=== PATIENT | female | born 1990 | race Caucasian/White ===

== ENCOUNTER → 2018-09-23 14:10 | Outpatient (CLI) | payer OTHER, MEDICAID, SELFPAY ==
[2018-09-23 15:10] LABS: Hemoglobin A1C% w Est Avg Glu 4.8 % (4.0-6.0)
[2018-09-23 15:27] LABS: Glucose 86 mg/dL (70-100)
== END ==
PROVIDERS: PCP Family Medicine; Visit Provider Family Medicine
DX: R53.83 Other fatigue (principal)
CPT/HCPCS: 36415; 82947; 83036

== ENCOUNTER → 2019-02-18 09:12 | Outpatient (CLI) | payer OTHER, MEDICAID, SELFPAY ==
--- NOTE | 2019-02-18 09:13 | DI.US.S_ITS ---
PROCEDURE: US PELVIC COMPLETE INDICATIONS: RIGHT PELVIC PAIN; POSSIBLE CYST TECHNIQUE: Real-time scanning was performed of the pelvic organs, with image documentation. Additional endovaginal scanning was necessary due to incomplete visualization of the adnexal and endometrial structures by transabdominal scanning. COMPARISON: [facility], , PELVIC COMPLETE, 03/30/2016, 6:43. [facility], , PELVIC COMPLETE, 02/09/2016, 8:21. FINDINGS: Transabdominal scanning: Limited scanning through the kidneys shows no hydronephrosis. No pathologic free abdominal or pelvic fluid. Endovaginal scanning: Uterus: Uterus is normal in size at 5.3 x 3.9 x 8.8 cm, anteverted. The endometrium measures 4.5 mm in combined thickness. Ovaries: The right ovary measures 2.7 x 1.4 x 2.2 cm and the left measures 1.8 x 3.2 x 2.6 cm. There is a presumed involuting cyst at the left ovary measuring only 1.6 x 1.0 x 1.8 cm. The IMPRESSION: Normal appearing uterus and endometrial lining. Normal-appearing right ovary. Involuting 1.0 x 1.6 x 1.8 cm left ovarian cyst incidentally noted. Dictated by: Hussein Ramirez M.D. on 02/18/2019 at 11:41 Approved by: Hussein Ramirez M.D. on 02/18/2019 at 11:43
== END ==
PROVIDERS: PCP Family Medicine; Visit Provider Family Medicine
DX: R10.2 Pelvic and perineal pain (principal); N83.292 Other ovarian cyst, left side
CPT/HCPCS: 76830; 76856

== ENCOUNTER → 2020-06-14 10:51 | Outpatient (CLI) | payer OTHER, MEDICAID, SELFPAY ==
[2020-06-14 11:51] LABS: Alanine Aminotransferase 26 IU/L (<35); Albumin 4.3 g/dL (3.5-5.0); Albumin Globulin Ratio 1.4 (1.0-2.8); Alkaline Phosphatase 61 U/L (38-126); Aspartate Aminotransferase 24 IU/L (14-36); BUN Creatinine Ratio 16.1 (6-22); Bilirubin Total 0.4 mg/dL (0.2-1.3); Bilirubin Unconjugated 0.3 mg/dL (0.0-1.1); Blood Urea Nitrogen 10 mg/dL (7-17); Calcium 9.1 mg/dL (8.4-10.2); Carbon Dioxide 25 mmol/L (22-32); Chloride 106 mmol/L (98-107); Cholesterol 145 mg/dL (140-199); Estimated Glomerular Filt Rate > 60.0 mL/min (>60); Globulin 3.1 g/dL (1.7-4.1); Glucose 104 mg/dL (70-100); HDL Cholesterol 46 mg/dL (40-60); HEMOLYSIS < 15 (0-50); LDL Cholesterol Calculated 84 mg/dL (<100); Phosphorous 3.1 mg/dL (2.5-4.5); Potassium 4.2 mmol/L (3.4-5.1); Sodium 135 mmol/L (137-145); Total Protein 7.4 g/dL (6.3-8.2); Triglycerides 75 mg/dL (35-150)
[2020-06-14 12:16] LABS: Free T3, Triiodothyronine Free 3.41 pg/mL (2.77-5.27); T4 Total Thyroxine 7.27 ug/dL (5.5-11.0)
[2020-06-14 12:29] LABS: Thyroid Stimulating Hormone 1.66 uIU/mL (0.47-4.68)
[2020-06-17 10:08] LABS: Lamotrigine Lamictal 1.9 ug/mL (2.0-20.0)
== END ==
PROVIDERS: PCP Family Medicine; Referring Provider Nurse Practitioner Family; Visit Provider Nurse Practitioner Family
DX: F31.81 Bipolar II disorder (principal); F41.1 Generalized anxiety disorder
CPT/HCPCS: 36415; 80053; 80061; 80069; 80076; 80175; 84436; 84443; 84481

== ENCOUNTER → 2021-06-04 10:03 | Outpatient (CLI) | payer OTHER, MEDICAID, SELFPAY ==
[2021-06-04 10:43] LABS: COVID19 -Nasal RAPID Negative (Negative)
== END ==
PROVIDERS: PCP Family Medicine; Visit Provider Physician Assistant
DX: J02.9 Acute pharyngitis, unspecified (principal); Z20.822 Contact with and (suspected) exposure to COVID-19
CPT/HCPCS: 87070; 87077; 87147; 87635; 87880

== ENCOUNTER → 2022-06-12 16:53 | Outpatient (CLI) | payer OTHER, MEDICAID, SELFPAY ==
[2022-06-12 17:12] LABS: Add Manual Diff / Slide Review NO; Basophils Absolute Auto 100 /uL (0-100); Basophils Percent Auto 0.7 % (0-2); Eosinophils Absolute Auto 100 /uL (0-450); Hematocrit 40.3 % (36-46); Hemoglobin 13.7 g/dL (12.0-16.0); Lymphocytes Absolute Auto 2900 /uL (1100-4500); Lymphocytes Percent Auto 19.8 % (25-40); Mean Corpuscular HGB Conc 34.1 % (30-36); Mean Corpuscular Hemoglobin 28.1 PG (26-34); Mean Corpuscular Volume 82.5 fL (80-100); Monocytes Absolute Auto 800 /uL (0-900); Monocytes Percent Auto 5.8 % (3-14); Neutrophils Absolute Auto 10600 /uL (1500-7000); Neutrophils Percent Auto 72.7 % (50-75); Platelet Count 310 X10^3/uL (150-400); Red Blood Cell Count 4.88 X10^6/uL (4.0-5.2); Red Cell Distribution Width 13.7 % (11.6-14.8); White Blood Cell Count 14.6 X10^3/uL (4.5-11.0)
[2022-06-12 17:39] LABS: Alanine Aminotransferase 34 IU/L (<35); Albumin 4.7 g/dL (3.5-5.0); Albumin Globulin Ratio 1.2 (1.0-2.8); Alkaline Phosphatase 97 U/L (38-126); Aspartate Aminotransferase 29 IU/L (14-36); BUN Creatinine Ratio 10.1 (6-22); Bilirubin Total 0.8 mg/dL (0.2-1.3); Blood Urea Nitrogen 8 mg/dL (7-17); Calcium 9.1 mg/dL (8.4-10.2); Carbon Dioxide 21 mmol/L (22-32); Chloride 102 mmol/L (98-107); Cholesterol 218 mg/dL (140-199); Estimated Glomerular Filt Rate > 60 mL/min (>60); Globulin 3.8 g/dL (1.7-4.1); Glucose 94 mg/dL (70-100); HDL Cholesterol 47 mg/dL (40-60); HEMOLYSIS < 15 (0-50); LDL Cholesterol Calculated 125 mg/dL (<100); Potassium 3.5 mmol/L (3.4-5.1); Sodium 138 mmol/L (137-145); Total Protein 8.5 g/dL (6.3-8.2); Triglycerides 229 mg/dL (35-150)
[2022-06-12 17:54] LABS: Free T4, Direct Thyroxine 1.52 ng/dL (0.78-2.19)
[2022-06-12 18:08] LABS: Thyroid Stimulating Hormone 1.87 uIU/mL (0.47-4.68)
== END ==
PROVIDERS: PCP Family Medicine; Referring Provider Physician Assistant; Visit Provider Physician Assistant
DX: Z79.899 Other long term (current) drug therapy (principal)
CPT/HCPCS: 36415; 80053; 80061; 84439; 84443; 84481; 85025

== ENCOUNTER → 2022-06-20 15:24 | Outpatient (CLI) | payer OTHER, MEDICAID, SELFPAY ==
[2022-06-20 16:12] LABS: Appearance Urine UA CLEAR; Bilirubin Urine UA NEGATIVE (NEGATIVE); Color Urine UA YELLOW; Glucose Urine UA NEGATIVE (Negative); Ketones Urine UA NEGATIVE (NEGATIVE); Leukocyte Esterase Urine UA NEGATIVE (NEGATIVE); Nitrite Urine UA NEGATIVE (Negative); Occult Blood Urine UA TRACE-LYSED (Negative); Protein Urine UA NEGATIVE (Negative); Urobilinogen Urine UA 0.2 E.U./dL (0.2)
[2022-06-20 16:16] LABS: Add Manual Diff / Slide Review NO; Basophils Absolute Auto 0 /uL (0-100); Basophils Percent Auto 0.3 % (0-2); Eosinophils Absolute Auto 200 /uL (0-450); Eosinophils Percent Auto 1.1 % (2-4); Hematocrit 38.7 % (36-46); Lymphocytes Absolute Auto 2900 /uL (1100-4500); Lymphocytes Percent Auto 20.1 % (25-40); Mean Corpuscular HGB Conc 33.5 % (30-36); Mean Corpuscular Hemoglobin 27.5 PG (26-34); Mean Corpuscular Volume 82.2 fL (80-100); Monocytes Absolute Auto 800 /uL (0-900); Monocytes Percent Auto 5.7 % (3-14); Neutrophils Absolute Auto 10600 /uL (1500-7000); Neutrophils Percent Auto 72.8 % (50-75); Platelet Count 374 X10^3/uL (150-400); Red Cell Distribution Width 13.4 % (11.6-14.8); White Blood Cell Count 14.6 X10^3/uL (4.5-11.0)
[2022-06-20 16:20] LABS: Amorphous Sediment Urine 1+; Bacteria Urine Occasional (0-1); Culture Indicated Urine Specimen Cultured; RBC Urine 0-1/HPF (0-5/HPF); Squamous Epithelial Cell Urine 5-10 /HPF (0-5/HPF); WBC Urine 5-10/HPF (0-5/HPF)
[2022-06-20 17:04] LABS: Cholesterol 176 mg/dL (140-199); HDL Cholesterol 34 mg/dL (40-60); LDL Cholesterol Calculated 79 mg/dL (<100); Triglycerides 316 mg/dL (35-150)
== END ==
PROVIDERS: PCP Family Medicine; Referring Provider Physician Assistant; Visit Provider Physician Assistant
DX: E78.2 Mixed hyperlipidemia (principal); D72.829 Elevated white blood cell count, unspecified
CPT/HCPCS: 36415; 80061; 81001; 85025; 87086

== ENCOUNTER → 2022-08-15 07:08 | Outpatient (CLI) | payer OTHER, MEDICAID, SELFPAY ==
[2022-08-15 07:54] LABS: Add Manual Diff / Slide Review NO; Basophils Absolute Auto 0 /uL (0-100); Basophils Percent Auto 0.4 % (0-2); Eosinophils Absolute Auto 300 /uL (0-450); Eosinophils Percent Auto 3.5 % (2-4); Hematocrit 38.8 % (36-46); Hemoglobin 13.3 g/dL (12.0-16.0); Lymphocytes Absolute Auto 2700 /uL (1100-4500); Lymphocytes Percent Auto 27.8 % (25-40); Mean Corpuscular HGB Conc 34.3 % (30-36); Mean Corpuscular Hemoglobin 28.5 PG (26-34); Monocytes Absolute Auto 1000 /uL (0-900); Neutrophils Absolute Auto 5600 /uL (1500-7000); Neutrophils Percent Auto 58.3 % (50-75); Platelet Count 282 X10^3/uL (150-400); Red Blood Cell Count 4.67 X10^6/uL (4.0-5.2); Red Cell Distribution Width 13.3 % (11.6-14.8); White Blood Cell Count 9.6 X10^3/uL (4.5-11.0)
[2022-08-15 08:35] LABS: Cholesterol 140 mg/dL (140-199); HDL Cholesterol 43 mg/dL (40-60); LDL Cholesterol Calculated 33 mg/dL (<100); Triglycerides 320 mg/dL (35-150)
== END ==
PROVIDERS: PCP Family Medicine; Referring Provider Physician Assistant; Visit Provider Physician Assistant
DX: E78.2 Mixed hyperlipidemia (principal); D72.829 Elevated white blood cell count, unspecified
CPT/HCPCS: 36415; 80061; 85025

== ENCOUNTER → 2022-08-27 07:06 | Outpatient (CLI) | payer OTHER, MEDICAID, SELFPAY ==
[2022-08-27 08:27] LABS: Alanine Aminotransferase 23 IU/L (<35); Albumin 4.3 g/dL (3.5-5.0); Albumin Globulin Ratio 1.3 (1.0-2.8); Alkaline Phosphatase 72 U/L (38-126); Aspartate Aminotransferase 24 IU/L (14-36); BUN Creatinine Ratio 18.2 (6-22); Bilirubin Total 0.3 mg/dL (0.2-1.3); Blood Urea Nitrogen 12 mg/dL (7-17); Calcium 8.9 mg/dL (8.4-10.2); Carbon Dioxide 25 mmol/L (22-32); Chloride 104 mmol/L (98-107); Estimated Glomerular Filt Rate > 60 mL/min (>60); Globulin 3.4 g/dL (1.7-4.1); Glucose 106 mg/dL (70-100); HEMOLYSIS < 15 (0-50); Potassium 4.2 mmol/L (3.4-5.1); Sodium 139 mmol/L (137-145); Total Protein 7.7 g/dL (6.3-8.2)
[2022-08-27 08:54] LABS: TSH w/ Reflex to FT4 1.72 uIU/mL (0.47-4.68)
== END ==
PROVIDERS: PCP Family Medicine; Referring Provider Physician Assistant; Visit Provider Physician Assistant
DX: E78.2 Mixed hyperlipidemia (principal); R10.9 Unspecified abdominal pain; R19.7 Diarrhea, unspecified
CPT/HCPCS: 36415; 80053; 84443

== ENCOUNTER → 2022-09-11 06:44 | Outpatient (CLI) | payer OTHER, MEDICAID, SELFPAY ==
--- NOTE | 2022-09-11 06:46 | DI.US.S_ITS ---
PROCEDURE: US ABDOMEN COMPLETE INDICATIONS: ABDOMINAL PAIN AND DIARRHEA X 1.5 YEARS TECHNIQUE: Real-time scanning was performed of the abdominal and retroperitoneal organs, with image documentation. COMPARISON: None. FINDINGS: Liver: Liver is normal in size and homogeneous in echotexture. Gallbladder: Nondilated. No stones or sludge. Normal gallbladder wall thickness. No pericholecystic fluid. Negative sonographic Judd's sign. Biliary ducts: Intrahepatic bile ducts are non-dilated. Extrahepatic bile duct caliber measures 5 mm. Normal is 6-7 mm or less in diameter, or 10 mm or less post-cholecystectomy. Pancreas: Visualized portions of the pancreatic head are sonographically normal. Spleen: Spleen is normal in size and homogeneous in echotexture. Measures 11.1 cm Kidneys: Kidneys are normal in size and echotexture. Right kidney measures 11.7 cm long; left kidney measures 12 cm long. No hydronephrosis or nephrolithiasis. No solid masses. Aorta: Visualized aorta is normal in caliber at less than 3 cm. Iliacs: Proximal common iliac arteries are normal in caliber at less than 2.5 cm. IVC: Intrahepatic inferior vena cava is patent. Miscellaneous: No free abdominal fluid. IMPRESSION: 1. No acute cholecystitis. No gallstones. 2. No hydronephrosis. No free fluid seen. Dictated by: Berny Davis M.D. on 09/11/2022 at 9:54 Approved by: Berny Davis M.D. on 09/11/2022 at 9:57
== END ==
PROVIDERS: PCP Family Medicine; Referring Provider Physician Assistant; Visit Provider Physician Assistant
DX: R10.9 Unspecified abdominal pain (principal); R19.7 Diarrhea, unspecified
CPT/HCPCS: 76700

== ENCOUNTER → 2022-09-26 15:58 | Outpatient (CLI) | payer OTHER, MEDICAID, SELFPAY ==
--- NOTE | 2022-09-26 16:00 | DI.RAD.S_ITS ---
PROCEDURE: XR FOOT RT MIN 3V INDICATIONS: Bilateral foot pain - suspect bilateral plantar fasciitis TECHNIQUE: 3 views of the foot were acquired. COMPARISON: None. FINDINGS: Bones: No fractures or dislocations. No suspicious bony lesions. Small plantar and posterior calcaneal spurs. Mild degenerative changes 1st MTP joint. Soft tissues: No tibiotalar joint effusion. IMPRESSION: No acute osseous abnormality. If symptoms persist, follow-up radiographs and/or CT or MRI may be helpful for further evaluation. Dictated by: Landen Sim M.D. on 09/26/2022 at 17:31 Approved by: Landen Sim M.D. on 09/26/2022 at 17:33
--- NOTE | 2022-09-26 16:00 | DI.RAD.S_ITS ---
PROCEDURE: XR FOOT LT MIN 3V INDICATIONS: Bilateral foot pain - suspect bilateral plantar fasciitis TECHNIQUE: 3 views of the foot were acquired. COMPARISON: None. FINDINGS: Bones: No fractures or dislocations. No suspicious bony lesions. Small posterior calcaneal spur. Mild 1st MTP joint degenerative changes. Soft tissues: No tibiotalar joint effusion. IMPRESSION: No acute osseous abnormality. If symptoms persist, follow-up radiographs and/or CT or MRI may be helpful for further evaluation. Dictated by: Landen Sim M.D. on 09/26/2022 at 17:33 Approved by: Landen Sim M.D. on 09/26/2022 at 17:34
== END ==
PROVIDERS: PCP Family Medicine; Referring Provider Physician Assistant; Visit Provider Physician Assistant
DX: M21.41 Flat foot [pes planus] (acquired), right foot (principal); M21.42 Flat foot [pes planus] (acquired), left foot; M72.2 Plantar fascial fibromatosis; M79.671 Pain in right foot; M79.672 Pain in left foot; M77.32 Calcaneal spur, left foot; M77.31 Calcaneal spur, right foot
CPT/HCPCS: 73630

== ENCOUNTER → 2022-11-20 06:59 | Outpatient (CLI) | payer OTHER, MEDICAID, SELFPAY ==
[2022-11-20 08:33] LABS: Cholesterol 145 mg/dL (140-199); HDL Cholesterol 38 mg/dL (40-60); LDL Cholesterol Calculated 57 mg/dL (<100); Triglycerides 252 mg/dL (35-150)
== END ==
PROVIDERS: PCP Family Medicine; Referring Provider Family Medicine; Visit Provider Family Medicine
DX: E78.2 Mixed hyperlipidemia (principal)
CPT/HCPCS: 36415; 80061

== ENCOUNTER → 2023-07-04 07:05 | Outpatient (CLI) | payer OTHER, MEDICAID, SELFPAY ==
[2023-07-04 09:22] LABS: BUN Creatinine Ratio 23.9 (6-22); Blood Urea Nitrogen 16 mg/dL (7-17); Carbon Dioxide 22 mmol/L (22-32); Chloride 105 mmol/L (98-107); Cholesterol 127 mg/dL (140-199); Estimated Glomerular Filt Rate > 60 mL/min (>60); Glucose 104 mg/dL (70-100); HDL Cholesterol 33 mg/dL (40-60); HEMOLYSIS < 15 (0-50); LDL Cholesterol Calculated 50 mg/dL (<100); Potassium 4.7 mmol/L (3.4-5.1); Sodium 137 mmol/L (137-145); Triglycerides 221 mg/dL (35-150)
[2023-07-04 09:26] LABS: Hemoglobin A1C% w Est Avg Glu 5.2 % (4.0-6.0)
== END ==
PROVIDERS: PCP Family Medicine; Referring Provider Internal Medicine Gastroenterology; Visit Provider Internal Medicine Gastroenterology
DX: R19.7 Diarrhea, unspecified (principal); I10 Essential (primary) hypertension; E78.2 Mixed hyperlipidemia; R73.09 Other abnormal glucose
CPT/HCPCS: 36415; 80048; 80061; 83036

== ENCOUNTER → 2024-06-17 07:00 | Outpatient (CLI) | payer OTHER, MEDICAID, SELFPAY ==
[2024-06-17 08:18] LABS: Add Manual Diff / Slide Review NO; Basophils Absolute Auto 100 /uL (0-100); Basophils Percent Auto 0.6 % (0-2); Eosinophils Absolute Auto 300 /uL (0-450); Eosinophils Percent Auto 2.9 % (2-4); Hematocrit 39.5 % (36-46); Hemoglobin 13.6 g/dL (12.0-16.0); Lymphocytes Absolute Auto 2300 /uL (1100-4500); Lymphocytes Percent Auto 26.9 % (25-40); Mean Corpuscular HGB Conc 34.3 % (30-36); Mean Corpuscular Hemoglobin 28.4 PG (26-34); Mean Corpuscular Volume 82.7 fL (80-100); Monocytes Absolute Auto 800 /uL (0-900); Monocytes Percent Auto 8.8 % (3-14); Neutrophils Absolute Auto 5300 /uL (1500-7000); Neutrophils Percent Auto 60.8 % (50-75); Platelet Count 308 X10^3/uL (150-400); Red Blood Cell Count 4.78 X10^6/uL (4.0-5.2); Red Cell Distribution Width 13.8 % (11.6-14.8); White Blood Cell Count 8.6 X10^3/uL (4.5-11.0)
[2024-06-17 08:26] LABS: Hemoglobin A1C% w Est Avg Glu 5.1 % (4.0-6.0)
[2024-06-17 08:41] LABS: Alanine Aminotransferase 20 IU/L (<35); Albumin 4.4 g/dL (3.5-5.0); Albumin Globulin Ratio 1.6 (1.0-2.8); Alkaline Phosphatase 69 U/L (38-126); Aspartate Aminotransferase 24 IU/L (14-36); Bilirubin Total 0.5 mg/dL (0.2-1.3); Blood Urea Nitrogen 15 mg/dL (7-17); Calcium 9.2 mg/dL (8.4-10.2); Carbon Dioxide 22 mmol/L (22-32); Chloride 106 mmol/L (98-107); Cholesterol 144 mg/dL (140-199); Estimated Glomerular Filt Rate > 60 mL/min (>60); Globulin 2.7 g/dL (1.7-4.1); Glucose 88 mg/dL (70-100); HDL Cholesterol 43 mg/dL (40-60); HEMOLYSIS < 15 (0-50); LDL Cholesterol Calculated 74 mg/dL (<100); Potassium 4.4 mmol/L (3.4-5.1); Sodium 137 mmol/L (137-145); Total Protein 7.1 g/dL (6.3-8.2); Triglycerides 136 mg/dL (35-150)
[2024-06-17 09:10] LABS: TSH w/ Reflex to FT4 1.37 uIU/mL (0.47-4.68)
[2024-06-18 07:36] LABS: Interpretation Negative (Negative)
== END ==
PROVIDERS: PCP Family Medicine; Referring Provider Physician Assistant; Visit Provider Physician Assistant
DX: R11.0 Nausea (principal); R73.09 Other abnormal glucose; I10 Essential (primary) hypertension; Z68.38 Body mass index [BMI] 38.0-38.9, adult; E78.2 Mixed hyperlipidemia; G43.909 Migraine, unspecified, not intractable, without status migrainosus
CPT/HCPCS: 36415; 80053; 80061; 83013; 83036; 84443; 85025

== ENCOUNTER 2024-08-03 21:28 | Emergency (ER) | payer OTHER, SELFPAY ==
[2024-08-03 21:32] VITALS: BP 152/78; PULSE 122; RESP 17; TEMP 36.9; O2SAT 98; BMI 29.7
[2024-08-03 22:28] VITALS: PULSE 118; O2SAT 99
[2024-08-03 22:30] VITALS: BP 155/86; PULSE 107; TEMP 37; O2SAT 99
--- NOTE | 2024-08-03 22:33 | ED.SKABFB ---
HPI - Skin/Abscess/Foreign Bdy General Chief complaint: Skin/Abscess/Foreign Body Stated complaint: spreading rash, fever Time Seen by Provider: 08/03/24 22:01 Source: patient Mode of arrival: Ambulatory History of Present Illness HPI narrative: 34-year-old female who within the past 24 hours has developed a rash located throughout her body. Over the past couple days she has had URI like symptoms to include fevers and cough and congestion. States that she was allergic to Benadryl. She did take some NyQuil last evening. She reports no problems breathing. Chest pain. Vomiting. Not tried anything for the symptoms prior to arrival. Related Data Home Medications Medication Instructions Recorded Confirmed lamotrigine 100 mg tablet 100 mg PO DAILY 06/12/22 06/24/24 atomoxetine 80 mg capsule 80 mg PO DAILY 12/27/22 06/24/24 gabapentin 600 mg tablet 600 mg PO QID 12/27/22 06/24/24 bupropion HCl 300 mg 24 hr tablet, 300 mg PO DAILY 02/25/24 06/24/24 extended release olanzapine 7.5 mg tablet 7.5 mg PO ONCE PM 02/25/24 06/24/24 omeprazole 20 mg capsule,delayed 40 mg PO BID 02/25/24 06/24/24 release sucralfate 1 gram tablet PO 02/25/24 06/24/24 Previous Rx's Medication Instructions Recorded lisinopril 40 mg tablet 40 mg PO DAILY #90 tabs 10/08/23 rosuvastatin 5 mg tablet 5 mg PO BEDTIME #90 tabs 12/12/23 etonogestrel 68 mg subdermal 68 mg intradermal ONCE #1 ea 02/25/24 implant (Nexplanon) topiramate 25 mg tablet 25 mg PO BID #180 tabs 06/24/24 prednisone 20 mg tablet 20 mg PO DAILY #7 tabs 08/03/24 Allergies Allergy/AdvReac Type Severity Reaction Status Date / Time erythromycin base Allergy Mild UNKNOWN, Verified 08/03/24 21:32 [ERYTHROMYCIN BASE] CHILDHOOD Penicillins [PENICILLINS] Allergy Mild CHILDHOOD, Verified 08/03/24 21:32 UNKNOWN amoxicillin [AMOXICILLIN] AdvReac Mild RASH, Verified 08/03/24 21:32 FEVERS diphenhydramine AdvReac Mild RASH Verified 08/03/24 21:32 [From BENADRYL] Review of Systems Review of Systems ROS Unobtainable: All systems reviewed & are unremarkable except as noted in HPI and below Patient History Medical History Depression Anxiety (~2002) Migraines (~2009) Headache (~1997) Acne (~1998) Chicken pox (~1993) Painful menstrual periods Ovarian cyst (~2011) Irregular menstrual cycle Family History Father Age: 59 COPD (chronic obstructive pulmonary disease) Hypertension Grandmother Cancer Depression Mental health problem Mother Age: 59 Cancer COPD (chronic obstructive pulmonary disease) Grandmother Age: 77 Lung cancer Social History marital status: unmarried,single Smoking Status: Former smoker alcohol intake: current (ON OCCASION) substance use type: does not use Smoking Status: Former smoker Exam Initial Vital Signs Initial Vital Signs: Vital Signs Temperature 98.4 F 08/03/24 21:32 Pulse Rate 122 H 08/03/24 21:32 Respiratory Rate 17 08/03/24 21:32 Blood Pressure 152/78 H 08/03/24 21:32 Pulse Oximetry 98 08/03/24 21:32 Oxygen Delivery Method Room Air 08/03/24 21:32 Const General: cooperative and comfortable HENMT Mouth: oral mucosae normal Resp Effort & Inspection: normal respiratory effort Auscultation: clear to auscultation bilaterally Cardio Rate: regular rate Rhythm: regular rhythm Skin Other: Patient with a diffuse systemic urticarial rash petechiae, vesicles, pustules. Neuro General: patient alert and patient awake Course Orders Ordered: Discontinued Medications Prednisone (Prednisone 20 Mg Tablet) 20 mg PO NOW ONE Stop: 08/03/24 22:35 Last Admin: 08/03/24 22:38 Dose: 20 mg Documented By: BS Vital Signs Vital signs: Vital Signs - 8 hr 08/03/24 21:32 08/03/24 22:28 08/03/24 22:30 Temperature 98.4 F Pulse Rate 122 H 118 H Respiratory Rate 17 Blood Pressure 152/78 H 155/86 H Pulse Oximetry 98 99 Oxygen Delivery Method Room Air 08/03/24 22:30 Temperature 98.6 F Pulse Rate 107 H Respiratory Rate Blood Pressure Pulse Oximetry 99 Oxygen Delivery Method Room Air MDM - Skin/Abscess/Foreign Bdy MDM Narrative Medical decision making narrative: She has had URI like symptoms for the past couple days. She was a diffuse urticaria rash. Low suspicion for meningitis, DN, Major-Armen, erythema multiforme. Given the extent of the rash will place her on steroids. She states she can not take Benadryl but advised that she try him on the 2nd generation antihistamine such as Claritin or Zyrtec. History and physical exam today was not consistent with anaphylaxis. Will discharge home with return precautions. She expressed understanding and agreement with the plan. Discharge Plan Departure Patient Disposition: Home Clinical Impression: Urticaria Instructions: Hives Activity Restrictions/Additional Instructions: I do recommend that you consider taking 1 of the 2nd generation antihistamine such as Claritin or Jody or Zyrtec. These can be purchased [id number]. The generic versions of these medications is appropriate. Take the steroids like we discussed. Return to the emergency department for new or worsening symptoms. Prescriptions: New prednisone 20 mg tablet 20 mg PO DAILY Qty: 7 0RF No Action atomoxetine 80 mg capsule 80 mg PO DAILY gabapentin 600 mg tablet 600 mg PO QID lamotrigine 100 mg tablet 100 mg PO DAILY lisinopril 40 mg tablet 40 mg PO DAILY Qty: 90 3RF rosuvastatin 5 mg tablet 5 mg PO BEDTIME Qty: 90 3RF topiramate 25 mg tablet 25 mg PO BID Qty: 180 3RF olanzapine 7.5 mg tablet 7.5 mg PO ONCE PM omeprazole 20 mg capsule,delayed release(DR/EC) 40 mg PO BID sucralfate 1 gram tablet PO bupropion HCl 300 mg tablet extended release 24 hr 300 mg PO DAILY Nexplanon 68 mg implant 68 mg Intradermal ONCE Qty: 1 0RF Referrals: Valdez Kimbrough MD [Primary Care Provider] - Stand Alone Forms: Patient Portal/API/Survey
[2024-08-03] MEDS: predniSONE 20 MG TABLET PO (22:38)
== END 2024-08-03 22:42 | disposition home or self-care (01) ==
PROVIDERS: Emergency Provider Emergency Medicine; PCP Family Medicine
DX: L50.9 Urticaria, unspecified (principal)
CPT/HCPCS: 99283